=== PATIENT | male | born 1970 | race Caucasian/White ===

== ENCOUNTER 2017-01-04 11:09 | Emergency (ER) | payer MEDICAID ==
[~2017-01-04] VITALS: Ht 162.6 cm; Wt 63.5 kg
[~2017-01-04 11:09] MED LIST: IBUP-1542 PO; TAMS-14 PO
[2017-01-04 11:13] VITALS: Ht 162.6 cm; Wt 63.5 kg
[2017-01-04] MEDS ORDERED: HYDROCODONE/APAP (5/325) TAB PO ONE (12:00)
[2017-01-04] MEDS ORDERED: ONDANSETRON (ODT) 4 MG TAB ODT STA (12:00)
[2017-01-04 12:18] LABS: URINE BLOOD (Dip) POC Trace-lysed (NEGATIVE)
[2017-01-04 12:29] LABS: ADD SCAN DIFF NO
[2017-01-04 12:40] LABS: BASOPHILS % 0.4 % (0.0-2.0); EOSINOPHILS # 0.1 10^3/ul (0.0-0.5); EOSINOPHILS % 1.3 % (0.0-7.0); HEMATOCRIT 48.7 % (42.0-52.0); LYMPHOCYTES # 2.1 10^3/ul (0.8-2.9); LYMPHOCYTES % 24.6 % (15.0-51.0); MEAN CORPUSCULAR HEMOGLOBIN 30.4 pg (29.0-33.0); MEAN CORPUSCULAR HGB CONC 32.9 g/dl (32.0-37.0); MEAN CORPUSCULAR VOLUME 92.4 fl (82.0-101.0); MEAN PLATELET VOLUME 10.2 fl (7.4-10.4); MONOCYTE # 0.8 10^3/ul (0.3-0.9); MONOCYTES % 8.9 % (0.0-11.0); NEUTROPHIL # 5.5 10^3/ul (1.6-7.5); NEUTROPHILS % 64.6 % (39.0-77.0); PLATELET COUNT 232 10^3/UL (140-415); RED BLOOD COUNT 5.27 10^6/ul (4.70-6.10); RED CELL DISTRIBUTION WIDTH 13.6 % (11.5-14.5); WHITE BLOOD COUNT 8.6 10^3/ul (4.8-10.8)
[2017-01-04 12:50] LABS: ALBUMIN 4.3 g/dl (3.3-4.9)
[2017-01-04 12:53] LABS: ALBUMIN/GLOBULIN RATIO 1.19; BILIRUBIN,INDIRECT 1.6 mg/dl (0-1.1); BILIRUBIN,TOTAL 1.6 mg/dl (0.2-1.3); CREATININE 0.79 mg/dl (0.61-1.24); TOTAL PROTEIN 7.9 g/dl (6.1-8.1)
[2017-01-04 12:54] LABS: CALCIUM 9.1 mg/dl (8.4-10.2)
--- NOTE | 2017-01-04 12:54 | ERD ---
ER Documentation Chief Complaint Date/Time DATE: 01/04/17 TIME: 12:52 Chief Complaint Pt with Epigastric pain, nausea and CRISOSTOMO X 4 days. Denies fever. HPI This a 46-year-old male who presents to the emergency department today complaining of headache, nausea, abdominal pain and body aches for the past 10 days. States he has not taken any medication for the pain. States that sometimes he "feels hot". States he is concerned that he has a lump in his stomach. States that sometimes he feels dizzy per denies any fevers or chills. ROS All systems reviewed and are negative except as per history of present illness. Medications Home Meds Active Scripts Naproxen* (Naprosyn*) 500 Mg Tablet, 500 MG PO BID Y for PAIN AND/OR INFLAMMATION, #30 TAB Prov:ASHLEY CASTRO PA-C 01/04/17 Famotidine* (Pepcid*) 20 Mg Tablet, 20 MG PO BID for 14 Days, TAB Prov:ASHLEY CASTRO PA-C 01/04/17 Ondansetron Hcl* (Zofran*) 4 Mg Tablet, 4 MG PO Q6H for NAUSEA AND/OR VOMITING, #30 TAB Prov:ASHLEY CASTRO PA-C 01/04/17 Hydrocodone/Acetaminophen ([place] 5-325 Tablet) 1 Each Tablet, 1 TAB PO Q6H Y for PAIN, #10 TAB Prov:PROASHLEY PRESTON PA-C 01/04/17 Tamsulosin Hcl* (Flomax*) 0.4 Mg Cap.er.24h, 0.4 MG PO BID, #30 CAP Prov:JAKOB SINGH MD 03/31/15 Ibuprofen* (Motrin*) 600 Mg Tab, 600 MG PO Q6, #14 TAB Prov:JAKOB SINGH MD 03/31/15 Allergies Allergies: Coded Allergies: No Known Allergy (Unverified , 03/31/15) PMhx/Soc Medical and Surgical Hx: pt denies Medical Hx, pt denies Surgical Hx Hx Alcohol Use: No Hx Substance Use: No Hx Tobacco Use: No Smoking Status: Never smoker Physical Exam Vitals Vital Signs Date Time Temp Pulse Resp B/P Pulse Ox O2 Delivery O2 Flow Rate FiO2 01/04/17 11:13 98.4 70 14 131/62 97 Physical Exam Const: Talkative, no acute distress Head: Atraumatic Eyes: Normal Conjunctiva. PERRLA. EOM intact ENT: Normal External Ears, Nose and Mouth. Neck: Full range of motion..~ No meningismus. Resp: Clear to auscultation bilaterally Cardio: Regular rate and rhythm, no murmurs Abd: Soft, diffuse abdominal tenderness non distended. Normal bowel sounds. No specific tenderness at [place] Skin: No petechiae or rashes Neur: Awake and alert. Cranial nerves II through XII intact. No gait ataxia. Psych: Normal Mood and Affect Result Diagram: 01/04/17 1219 01/04/17 1219 Results 24 hrs Laboratory Tests Test 01/04/17 12:18 01/04/17 12:19 Bedside Urine pH (LAB) 5.5 Bedside Urine Protein (LAB) Negative Bedside Urine Glucose (UA) Negative Bedside Urine Ketones (LAB) Trace Bedside Urine Blood Trace-lysed Bedside Urine Nitrite (LAB) Negative Bedside Urine Leukocyte Esterase (L Negative White Blood Count 8.610^3/ul Red Blood Count 5.2710^6/ul Hemoglobin 16.0g/dl Hematocrit 48.7% Mean Corpuscular Volume 92.4fl Mean Corpuscular Hemoglobin 30.4pg Mean Corpuscular Hemoglobin Concent 32.9g/dl Red Cell Distribution Width 13.6% Platelet Count 09059^3/UL Mean Platelet Volume 10.2fl Neutrophils % 64.6% Lymphocytes % 24.6% Monocytes % 8.9% Eosinophils % 1.3% Basophils % 0.4% Nucleated Red Blood Cells % 0.0/100WBC Neutrophils # 5.510^3/ul Lymphocytes # 2.110^3/ul Monocytes # 0.810^3/ul Eosinophils # 0.110^3/ul Basophils # 0.010^3/ul Nucleated Red Blood Cells # 0.010^3/ul Sodium Level 140mmol/L Potassium Level 4.0mmol/L Chloride Level 101mmol/L Carbon Dioxide Level 27mmol/L Anion Gap 16 Blood Urea Nitrogen 14mg/dl Creatinine 0.79mg/dl Glucose Level 100mg/dl Calcium Level 9.1mg/dl Total Bilirubin 1.6mg/dl Direct Bilirubin 0.00mg/dl Indirect Bilirubin 1.6mg/dl Aspartate Amino Transf (AST/SGOT) 32IU/L Alanine Aminotransferase (ALT/SGPT) 32IU/L Alkaline Phosphatase 68IU/L Total Protein 7.9g/dl Albumin 4.3g/dl Globulin 3.60g/dl Albumin/Globulin Ratio 1.19 Lipase 122U/L Current Medications Medications (Trade) Dose Ordered Sig/[place] Route PRN Reason Start Time Stop Time Status Last Admin Dose Admin Acetaminophen/ Hydrocodone Bitart ([place] (5/325)) 1 tab ONCE ONCE PO 01/04/17 12:00 01/04/17 12:03 DC 01/04/17 12:27 Ondansetron HCl (Zofran Odt) 4 mg ONCE STAT ODT 01/04/17 12:00 01/04/17 12:03 DC 01/04/17 12:27 DIAGNOSTIC IMAGING REPORT Patient: LUIS PUCKETT : 1970 Age: 46 Sex: M MR #: [id number] DOS: 01/04/17 1200 Ordering MD: ASHLEY CASTRO PA-C Location: [facility] Room/Bed: PROCEDURE: CT Abdomen and Pelvis without contrast. CLINICAL INDICATION: Abdominal and pelvic pain. TECHNIQUE: CT scan of the abdomen and pelvis without contrast was performed. Coronal and sagittal reformatted images were obtained from the axial source images. Images were reviewed on a high-resolution PACS workstation. Total exam DLP is 402.42 mGy-cm. CTDIvol is 7.23 mGy. One or more of the following dose reduction techniques were used: Automated exposure control, adjustment of the mA and/or kV according to patient size, use of iterative reconstruction technique. COMPARISON: None. FINDINGS: There is mild atelectasis at the lung bases posteriorly. The lung bases are otherwise normal. The heart size is normal. There is no pleural effusion or pericardial effusion. The liver is normal in size and attenuation. There is no focal hepatic lesion. The gallbladder and bile ducts are normal. The spleen is normal in size. There is no focal splenic lesion. Both adrenals are normal with no enlargement or mass. The pancreas is unremarkable with no mass or evidence of pancreatitis. There is no renal mass or hydronephrosis. There is no renal calculus or ureteral calculus. The abdominal aorta is not dilated. There is a retroaortic left renal vein, a normal variant. There is no retroperitoneal lymphadenopathy or mass. There is no pelvic lymphadenopathy or mass. The bladder and distal ureters are normal. The periappendiceal region is unremarkable with no evidence of appendicitis. The bowel and mesentery are normal. There is no free fluid or free gas. The osseous structures are unremarkable with no fracture or lytic lesion. IMPRESSION: 1. Mild atelectasis at the lung bases posteriorly. 2. Retroaortic left renal vein, a normal variant. 3. Otherwise unremarkable noncontrast CT scan of the abdomen and pelvis. RPTAT: QQ .Jakob Singh MD, MD Date Time Electronically viewed and signed by .Jakob Singh MD, on 01/04/2017 13:18 .R/ CC: ASHLEY CASTRO PA-C Procedures/[facility] This a 46-year-old male who presents to the emergency department today with multiple complaints. On physical exam patient had diffuse abdominal tenderness. He also reported nausea and dizziness and a headache. I did obtain laboratory work as well as imaging. Laboratory work shows no elevated white blood cell count. He is not anemic. Platelets are within normal limits. Electrolytes are within normal limits. Glucose is within normal limits. Lipase is within normal limits. Liver function is within normal limits UA is negative for infection. CT abdomen pelvis noncontrast shows mild atelectasis at the lung bases posteriorly. There is a retroaortic left renal vein. A normal variant. There is no renal mass or hydronephrosis. No renal calculus. There is no pelvic lymphadenopathy or mass. There is no free fluid or free air. Gallbladder and bile ducts are normal. Patient was complaining of a headache for the past 4 days. He has not taken any medication for the pain. He has no focal neurologic deficits and no gait ataxia and I do not feel that the patient requires a head CT scan at this time. Low suspicion for acute hemorrhage, mass, abscess. Patient symptoms at this time most consistent with abdominal pain of uncertain etiology. Low suspicion for acute surgical abdomen. Patient also has a headache. Low suspicion for migraine type headache. Low suspicion for elevated blood pressure as a cause for headache. Patient's blood pressure is 131/62 Patient was given [place] and Zofran here in the emergency department symptoms improved. Patient is walking around the emergency department in no acute distress.. Patient be given a prescription for [place], Zofran and Naprosyn and Pepcid At this time the patient is stable for discharge and outpatient management. Patient should follow up with their PCP in the next 1-2 days. They may return to the emergency department sooner for any persistent or worsening of symptoms. Patient understood and agreed with the plan. Departure Diagnosis: Primary Impression: Multiple complaints Additional Impression: Abdominal pain Abdominal location: generalized Qualified Code: R10.84 - Generalized abdominal pain Condition: ASHLEY Hendrickson PA-C Jan 04, 2017 12:54
--- NOTE | 2017-01-04 13:18 | RADRPT ---
PROCEDURE: CT Abdomen and Pelvis without contrast. CLINICAL INDICATION: Abdominal and pelvic pain. TECHNIQUE: CT scan of the abdomen and pelvis without contrast was performed. Coronal and sagittal reformatted images were obtained from the axial source images. Images were reviewed on a high-resolu [employer] PACS workstation. Total exam DLP is 402.42 mGy-cm. CTDIvol is 7.23 mGy. One or more of the fo [facility] dose reduction techniques were used: Automated exposure control, adjustment of the mA and/or kV according to patient size, use of iterative reconstruction technique. COMPARISON: None. FINDINGS: There is mild atelectasis at the lung bases posteriorly. The lung bases are otherwise normal. The heart size is normal. There is no pleural effusion or pericardial effusion. The liver is normal in size and attenuation. There is no focal hepatic lesion. The gallbladder and bile ducts are normal. The spleen is normal in size. There is no focal splenic lesion. Both adrenals are normal with no enlargement or mass. The pancreas is unremarkable with no mass or evidence of pancreatitis. There is no renal mass or hydronephrosis. There is no renal calculus or ureteral calculus. The abdominal aorta is not dilated. There is a retroaortic left renal vein, a normal variant. There is no retroperitoneal lymphadenopathy or mass. There is no pelvic lymphadenopathy or mass. The bladder and distal ureters are normal. The periappendiceal region is unremarkable with no evidence of appendicitis. The bowel and mesentery are normal. There is no free fluid or free gas. The osseous structures are unremarkable with no fracture or lytic lesion. IMPRESSION: 1. Mild atelectasis at the lung bases posteriorly. 2. Retroaortic left renal vein, a normal variant. 3. Otherwise unremarkable noncontrast CT scan of the abdomen and pelvis. RPTAT: QQ .Yogi Singh MD, MD Date Time Electronically viewed and signed by .Yogi Singh MD, on 01/04/2017 13:18 .R/
[2017-01-04] MEDS ORDERED: HYDR-906 PO (13:33)
[2017-01-04] MEDS ORDERED: FAMO-18 PO (13:33)
[2017-01-04] MEDS ORDERED: ONDA4TAB8 PO (13:33)
[2017-01-04] MEDS ORDERED: NAPR-260 PO (13:34)
[2017-01-04 15:30] VITALS: BP 128/68; PULSE 77; RESP 18
== END 2017-01-04 15:30 | disposition home or self-care (01) ==
LOC: FTE 11:09
DX: R51 Headache (principal); R10.84 Generalized abdominal pain; R11.0 Nausea; R42 Dizziness and giddiness
CPT/HCPCS: 36415; 74176; 80053; 81003; 83690; 85025; Z7502; Z7610

== ENCOUNTER 2017-05-13 10:13 | Emergency (ER) | payer MEDICAID ==
[~2017-05-13] VITALS: Ht 172.7 cm; Wt 70.0 kg
[~2017-05-13 10:13] MED LIST changes: +FAMO-96 PO; +HYDR-906 PO; +NAPR-260 PO; +ONDA4TAB8 PO
[2017-05-13 10:15] VITALS: Ht 172.7 cm; Wt 70.0 kg
[2017-05-13] MEDS ORDERED: SOD CHLORIDE 0.9% 1,000 ML IV STA (10:37)
[2017-05-13] MEDS ORDERED: KETOROLAC 30 MG INJ IV STA (10:37)
[2017-05-13] MEDS ORDERED: ONDANSETRON 4 MG INJ IV STA ×2 (10:37→13:14)
--- NOTE | 2017-05-13 10:44 | ERD ---
ER Documentation Chief Complaint Date/Time DATE: 05/13/17 TIME: 10:39 Chief Complaint pt bib self with left abd pain starting a few days ago, twisting feeling HPI 46-year-old otherwise healthy male presents the emergency department for complaints of a 2 day history of left lower quadrant abdominal pain. Patient reports that the pain is intermittent cramping 8 out of 10 pain which does not radiate. He reports the pain is worse when walking and improves with rest. Patient denies any diarrhea or vomiting, but reports nausea. He denies fever chills, dysuria, hematuria, penile discharge, chest pain, shortness of breath, or constipation. Patient's last bowel movement was this morning and normal for him. Patient denies any prior history of similar symptoms. He denies smoking or alcohol use. ROS All systems reviewed and are negative except as per history of present illness. Medications Home Meds Active Scripts Metronidazole* (Flagyl*) 500 Mg Tablet, 500 MG PO TID for 14 Days, TAB Prov:ALICIA RODGERS PA-C 05/13/17 Ciprofloxacin Hcl* (Ciprofloxacin Hcl*) 500 Mg Tablet, 500 MG PO BID, #14 TAB Prov:ALICIA RODGERS PA-C 05/13/17 Hydrocodone/Acetaminophen ([place] 5-325 Tablet) 1 Each Tablet, 1 EACH PO Q6, #20 TAB Prov:ALICIA RODGERS PA-C 05/13/17 Naproxen* (Naprosyn*) 500 Mg Tablet, 500 MG PO BID Y for PAIN AND/OR INFLAMMATION, #30 TAB Prov:ASHLEY CASTRO PA-C 01/04/17 Famotidine* (Pepcid*) 20 Mg Tablet, 20 MG PO BID for 14 Days, TAB Prov:PROASHLEY PRESTON PA-C 01/04/17 Ondansetron Hcl* (Zofran*) 4 Mg Tablet, 4 MG PO Q6H for NAUSEA AND/OR VOMITING, #30 TAB Prov:ASHLEY CASTRO PA-C 01/04/17 Hydrocodone/Acetaminophen ([place] 5-325 Tablet) 1 Each Tablet, 1 TAB PO Q6H Y for PAIN, #10 TAB Prov:ASHLEY CASTRO PA-C 01/04/17 Tamsulosin Hcl* (Flomax*) 0.4 Mg Cap.er.24h, 0.4 MG PO BID, #30 CAP Prov:JAKOB SINGH MD 03/31/15 Ibuprofen* (Motrin*) 600 Mg Tab, 600 MG PO Q6, #14 TAB Prov:JAKOB SINGH MD 03/31/15 Allergies Allergies: Coded Allergies: No Known Allergy (Unverified , 03/31/15) PMhx/Soc Medical and Surgical Hx: pt denies Medical Hx, pt denies Surgical Hx Hx Alcohol Use: No Hx Substance Use: No Hx Tobacco Use: No Smoking Status: Never smoker Physical Exam Vitals Vital Signs Date Time Temp Pulse Resp B/P Pulse Ox O2 Delivery O2 Flow Rate FiO2 05/13/17 10:15 97.8 64 16 127/70 99 Physical Exam Const: Well developed, well-nourished, no acute distress Head: Atraumatic Neck: Full range of motion..~ No meningismus. Resp: Clear to auscultation bilaterally Cardio: Regular rate and rhythm, no murmurs Abd: Soft, mild tenderness located at the left lower quadrant upon deep palpation, non distended. No right-sided quandrant tenderness. Normal bowel sounds Skin: No petechiae or rashes Back: No midline or flank tenderness Ext: No cyanosis, or edema Neur: Awake and alert Psych: Normal Mood and Affect Result Diagram: 05/13/17 1048 05/13/17 1048 Results 24 hrs Laboratory Tests Test 05/13/17 10:48 05/13/17 10:50 White Blood Count 6.610^3/ul Red Blood Count 5.2210^6/ul Hemoglobin 16.1g/dl Hematocrit 47.2% Mean Corpuscular Volume 90.4fl Mean Corpuscular Hemoglobin 30.8pg Mean Corpuscular Hemoglobin Concent 34.1g/dl Red Cell Distribution Width 13.0% Platelet Count 00132^3/UL Mean Platelet Volume 10.5fl Neutrophils % 61.1% Lymphocytes % 27.2% Monocytes % 9.9% Eosinophils % 1.1% Basophils % 0.5% Nucleated Red Blood Cells % 0.0/100WBC Neutrophils # (Manual) 4.010^3/ul Lymphocytes # 1.810^3/ul Monocytes # 0.710^3/ul Eosinophils # 0.110^3/ul Basophils # 0.010^3/ul Nucleated Red Blood Cells # 0.010^3/ul Sodium Level 141mmol/L Potassium Level 4.4mmol/L Chloride Level 100mmol/L Carbon Dioxide Level 27mmol/L Anion Gap 18 Blood Urea Nitrogen 13mg/dl Creatinine 0.77mg/dl Glucose Level 88mg/dl Calcium Level 9.1mg/dl Total Bilirubin 0.8mg/dl Direct Bilirubin 0.00mg/dl Indirect Bilirubin 0.8mg/dl Aspartate Amino Transf (AST/SGOT) 39IU/L Alanine Aminotransferase (ALT/SGPT) 54IU/L Alkaline Phosphatase 79IU/L Total Protein 7.8g/dl Albumin 4.2g/dl Globulin 3.60g/dl Albumin/Globulin Ratio 1.16 Lipase 171U/L Urine Color YELLOW Urine Clarity CLEAR Urine pH 6.0 Urine Specific [place] 1.024 Urine Ketones NEGATIVEmg/dL Urine Nitrite NEGATIVEmg/dL Urine Bilirubin NEGATIVEmg/dL Urine Urobilinogen NEGATIVEmg/dL Urine Leukocyte Esterase NEGATIVELeu/ul Urine Hemoglobin NEGATIVEmg/dL Urine Glucose NEGATIVEmg/dL Urine Total Protein NEGATIVEmg/dl Current Medications Medications (Trade) Dose Ordered Sig/[place] Route PRN Reason Start Time Stop Time Status Last Admin Dose Admin Sodium Chloride (NS) 1,000 ml @ 1,000 mls/hr Q1H STAT IV 05/13/17 10:37 05/13/17 11:36 DC 05/13/17 10:49 Ondansetron HCl (Zofran Inj) 4 mg ONCE STAT IV 05/13/17 10:37 05/13/17 10:40 DC 05/13/17 10:49 Ketorolac Tromethamine (Toradol) 30 mg ONCE STAT IV 05/13/17 10:37 05/13/17 10:40 DC 05/13/17 10:50 IV Flush 10 ml 10 ml STK-MED ONCE .ROUTE 05/13/17 12:05 05/13/17 12:06 DC Sodium Chloride (NS) 100 ml @ ud STK-MED ONCE .ROUTE 05/13/17 12:05 05/13/17 12:06 DC Iohexol (Omnipaque 300mg/ ml) 150 ml STK-MED ONCE .ROUTE 05/13/17 12:05 8/15/17 12:06 DC Morphine Sulfate (morphine) 4 mg ONCE STAT IV 05/13/17 13:14 05/13/17 13:15 DC Ondansetron HCl (Zofran Inj) 4 mg ONCE STAT IV 05/13/17 13:14 05/13/17 13:15 DC Procedures/[facility] PROCEDURE: CT Abdomen and Pelvis with contrast. CLINICAL INDICATION: Left lower quadrant pain for 3 days. TECHNIQUE: CT scan of the abdomen and pelvis with contrast was performed on a multi-detector high-resolution CT scanner. The patient was scanned following the uncomplicated intravenous administration of 100 cc of Omnipaque 300. Coronal and sagittal reformatted images were obtained from the axial source images. One or more of the following dose reduction techniques were used: Automated exposure control, adjustment of the mA and/or kV according to patient size, use of iterative reconstruction technique. Images were reviewed on a high -resolution PACS workstation. The total exam CTDI equals 7.8 mGy and the total exam DLP equals 435.06 mGy-cm. COMPARISON: CT from 01/04/2017. FINDINGS: CT abdomen: Minimal bilateral lower lobe dependent atelectatic changes/scarring is present. Otherwise, the lung bases are clear. The heart size is normal, without pericardial thickening or effusion. The liver is normal in size and density without focal mass or intrahepatic biliary dilatation. The spleen is normal in size and homogeneous in density. The stomach is partially collapsed, but is grossly unremarkable. The pancreas as visualized is normal. The gallbladder is unremarkable. The biliary tree is unremarkable without evidence for biliary dilatation. The adrenal glands are symmetric and normal. The kidneys are unremarkable. No renal calculus or obstructive uropathy or mass lesion is seen. A retroaortic left renal vein is incidentally noted. The aorta is of normal caliber. There is no retroperitoneal lymphadenopathy. The cyndie hepatis region is clear. The small bowel and mesentery, as visualized , are unremarkable. There is focal pericolonic inflammation at the posterolateral aspect of the mid to distal descending colon with adjacent fascial thickening. There is adjacent focal inflammation of the colonic wall, with possible inflamed diverticulum. Additional non inflamed diverticula are present more distally in the descending colon and proximal sigmoid colon. There is no evidence of abscess or free air. CT pelvis: There is a 2.0 x 2.0 x 2.7 cm hypodense region within the posterolateral aspect of the prostate gland with associated outpouching resulting in abnormal asymmetric contour of the prostate gland. The seminal vesicles are prominent. The small bowel loops situated within the pelvis are unremarkable. The pelvic sidewalls and inguinal regions are clear. The sigmoid colon and rectum are unremarkable. The appendix is normal. No mass, lymphadenopathy, or free fluid is seen. The bladder is normal. The surrounding osseous structures are unremarkable. No osteolytic or osteoblastic lesion is detected. IMPRESSION: 1. Focal inflammation of the mid to distal descending colon with adjacent pericolonic fat stranding, consistent with acute diverticulitis/colitis. No evidence of abscess or free air. 2. Focal 2.7 x 2.0 x 2.0 cm hypodense region within the left posterolateral aspect of the prostate gland (pictured below), concerning for malignancy versus focal inflammation/prostatitis. Recommend correlation with digital rectal exam , free/total PSA, and dynamic prostate MRI with contrast as clinically indicated. RPTAT: JJ .Dwayne Soriano MD, MD Date Time Electronically viewed and signed by .Dwayne Soriano MD, on 05/13/2017 12:43 .A/ CC: ALICIA RODGERS PA-C This is an otherwise healthy 46-year-old male who presents the emergency department for complaints of a cramp-like left lower quadrant abdominal pain which began 2 days ago. Patient well-appearing and nontoxic upon arrival. Patient denies fever chills vomiting diarrhea or constipation. Patient reports last bowel movement was this morning and normal for him. Vital signs reviewed. Patient afebrile, non-tachycardic, normotensive and non-hypoxic upon arrival. Patient without history of cardiac disease or diabetes. He denies chest pain shortness of breath. Physical exam with evidence of mild left lower quadrant tenderness to palpation. CBC showed no evidence of systemic infection or severe anemia. CMP showed no evidence of electrolyte abnormalities, severe acidosis, alkalosis , renal failure, or liver disease. Lipase showed no evidence of acute pancreatitis. UA showed no evidence of acute infection or hematuria. Patient received a bolus of fluids as well as pain and nausea medication while in the emergency department. CT of the abdomen and pelvis with contrast revealed evidence of focal inflammation to the distal descending colon consistent with likely acute diverticulitis. There is no evidence of perforated bowel or abscess. Additionally there was evidence of hypodense region within the left aspect of the prostate gland is concerning for prostatitis versus malignancy. Patient will receive copies of his diagnostic report as well as all laboratory findings and will be instructed to follow-up with his primary care physician for further workup regarding his prostate. Resources will be provided. Given the patient's history and physical exam as well as diagnostic imaging, patient symptoms likely the result of acute diverticulitis. Patient well- appearing upon arrival. Vital signs reviewed. Patient afebrile, non- tachycardic, normotensive and non-hypoxic upon arrival. Patient denies any bloody stool, vomiting, or diarrhea. At this time I have low suspicion for perforated bowel, acute cholecystitis, appendicitis, renal calculi, small bowel obstruction, abdominal aortic aneurysm. Patient will be provided with a course of ciprofloxacin as well as Flagyl and pain medication. Patient instructed to follow-up with his primary care physician in 1-2 days for further evaluation and workup regarding his prostate findings. Patient was given community resources. Based on patient's history of present illness and physical examination the decision was made to discharge. The patient was re-evaluated after ED treatment and stabilizing measures, and symptoms have improved. There is no evidence of life threatening injuries or illnesses at this time. On re-examination, patient resting in no distress, stable vital signs, reports feeling better and safe for discharge with outpatient follow up with PMD in 1-2 days. Patient given return precautions. Departure Diagnosis: Primary Impression: Abdominal pain Abdominal location: left lower quadrant Qualified Code: R10.32 - Left lower quadrant pain Additional Impressions: Nausea Diverticulitis Diverticulitis site: large intestine Diverticulitis bleeding: without bleeding Diverticulitis complication: without perforation or abscess Qualified Code: K57.32 - Diverticulitis of large intestine without perforation or abscess without bleeding Prostate mass ALICIA RODGERS PA-C May 13, 2017 10:44
[2017-05-13 10:59] LABS: BASOPHILS % 0.5 % (0.0-2.0); EOSINOPHILS # 0.1 10^3/ul (0.0-0.5); EOSINOPHILS % 1.1 % (0.0-7.0); HEMATOCRIT 47.2 % (42.0-52.0); HEMOGLOBIN 16.1 g/dl (14.0-18.0); LYMPHOCYTES # 1.8 10^3/ul (0.8-2.9); LYMPHOCYTES % 27.2 % (15.0-51.0); MEAN CORPUSCULAR HEMOGLOBIN 30.8 pg (29.0-33.0); MEAN CORPUSCULAR HGB CONC 34.1 g/dl (32.0-37.0); MEAN CORPUSCULAR VOLUME 90.4 fl (82.0-101.0); MEAN PLATELET VOLUME 10.5 fl (7.4-10.4); MONOCYTE # 0.7 10^3/ul (0.3-0.9); MONOCYTES % 9.9 % (0.0-11.0); NEUTROPHILS % 61.1 % (39.0-77.0); PLATELET COUNT 176 10^3/UL (140-415); RED BLOOD COUNT 5.22 10^6/ul (4.70-6.10); WHITE BLOOD COUNT 6.6 10^3/ul (4.8-10.8)
[2017-05-13 11:19] LABS: ALBUMIN 4.2 g/dl (3.3-4.9); ALBUMIN/GLOBULIN RATIO 1.16; BILIRUBIN,INDIRECT 0.8 mg/dl (0-1.1); BILIRUBIN,TOTAL 0.8 mg/dl (0.2-1.3); CALCIUM 9.1 mg/dl (8.4-10.2); CREATININE 0.77 mg/dl (0.61-1.24); POTASSIUM 4.4 mmol/L (3.5-5.1); TOTAL PROTEIN 7.8 g/dl (6.1-8.1)
[2017-05-13 11:19] LABS: ADD UMIC NO; UR ASCORBIC ACID NEGATIVE (NEGATIVE); UR BILIRUBIN (Dip) NEGATIVE (NEGATIVE); UR BLOOD (Dip) NEGATIVE (NEGATIVE); UR CLARITY CLEAR (CLEAR); UR COLOR YELLOW (YELLOW); UR GLUCOSE (Dip) NEGATIVE (NEGATIVE); UR KETONES (Dip) NEGATIVE (NEGATIVE); UR LEUKOCYTE ESTERASE (Dip) NEGATIVE Leu/ul (NEGATIVE); UR NITRITE (Dip) NEGATIVE (NEGATIVE); UR SPECIFIC GRAVITY (Dip) 1.024 (1.003-1.030); UR TOTAL PROTEIN (Dip) NEGATIVE (NEGATIVE); UR UROBILINOGEN (Dip) NEGATIVE (NEGATIVE)
[2017-05-13] MEDS ORDERED: SOD CHLORIDE 0.9% 100 ML ONE (12:05)
[2017-05-13] MEDS ORDERED: IOHEXOL 300MG/ML 150 ML BTL ONE (12:05)
--- NOTE | 2017-05-13 12:43 | RADRPT ---
PROCEDURE: CT Abdomen and Pelvis with contrast. CLINICAL INDICATION: Left lower quadrant pain for 3 days. TECHNIQUE: CT scan of the abdomen and pelvis with contrast was performed on a multi-detector high- resolution CT scanner. The patient was scanned following the uncomplicated intravenous administrati on of 100 cc of Omnipaque 300. Coronal and sagittal reformatted images were obtained from the axial source images. One or more of the following dose reduction techniques were used: Automated exposur e control, adjustment of the mA and/or kV according to patient size, use of iterative reconstructio n technique. Images were reviewed on a high-resolution PACS workstation. The total exam CTDI equals 7.8 mGy and the total exam DLP equals 435.06 mGy-cm. COMPARISON: CT from 01/04/2017. FINDINGS: CT abdomen: Minimal bilateral lower lobe dependent atelectatic changes/scarring is present. Otherwise, the jennifer g bases are clear. The heart size is normal, without pericardial thickening or effusion. The liver is normal in size and density without focal mass or intrahepatic biliary dilatation. The spleen is normal in size and homogeneous in density. The stomach is partially collapsed, but is ponce ssly unremarkable. The pancreas as visualized is normal. The gallbladder is unremarkable. The becka iary tree is unremarkable without evidence for biliary dilatation. The adrenal glands are symmetric and normal. The kidneys are unremarkable. No renal calculus or obstructive uropathy or mass lesio n is seen. A retroaortic left renal vein is incidentally noted. The aorta is of normal caliber. There is no retroperitoneal lymphadenopathy. The cyndie hepatis re gion is clear. The small bowel and mesentery, as visualized, are unremarkable. There is focal peric olonic inflammation at the posterolateral aspect of the mid to distal descending colon with adjacent fascial thickening. There is adjacent focal inflammation of the colonic wall, with possible inflam ed diverticulum. Additional non inflamed diverticula are present more distally in the descending co mahesh and proximal sigmoid colon. There is no evidence of abscess or free air. CT pelvis: There is a 2.0 x 2.0 x 2.7 cm hypodense region within the posterolateral aspect of the prostate glan d with associated outpouching resulting in abnormal asymmetric contour of the prostate gland. The seminal vesicles are prominent. The small bowel loops situated within the pelvis are unremarkable. The pelvic sidewalls and inguinal regions are clear. The sigmoid colon and rectum are unremarkable . The appendix is normal. No mass, lymphadenopathy, or free fluid is seen. The bladder is normal. The surrounding osseous structures are unremarkable. No osteolytic or osteoblastic lesion is detect ed. IMPRESSION: 1. Focal inflammation of the mid to distal descending colon with adjacent pericolonic fat stranding , consistent with acute diverticulitis/colitis. No evidence of abscess or free air. 2. Focal 2.7 x 2.0 x 2.0 cm hypodense region within the left posterolateral aspect of the prostate gland (pictured below), concerning for malignancy versus focal inflammation/prostatitis. Recommend correlation with digital rectal exam, free/total PSA, and dynamic prostate MRI with contrast as clin ically indicated. RPTAT: JJ .Dwayne Soriano MD, Date Time Electronically viewed and signed by .Dwayne Soriano MD, on 05/13/2017 12:43 .A/
[2017-05-13] MEDS ORDERED: HYDR-906 PO (13:09)
[2017-05-13] MEDS ORDERED: CIPR500T4 PO (13:09)
[2017-05-13] MEDS ORDERED: METR500T PO (13:09)
[2017-05-13] MEDS ORDERED: morphine 4 MG/ML VIAL IV STA (13:14)
== END 2017-05-13 13:52 | disposition home or self-care (01) ==
LOC: FTE 10:13
DX: R10.32 Left lower quadrant pain (principal); K57.32 Diverticulitis of large intestine without perforation or abscess without bleeding; R11.0 Nausea; N42.89 Other specified disorders of prostate
CPT/HCPCS: 36415; 74177; 80053; 81003; 83690; 85025; 96374; 96375; J1885; J2405; J7030; Q9967; Z7502; Z7610